=== PATIENT | male | born 1990 | race Caucasian/White ===

== ENCOUNTER 2020-02-05 12:28 | Day surgery (SDC) | payer OTHER ==
[~2020-02-05] VITALS: Ht 177.8 cm; Wt 68.2 kg
[2020-02-05] MEDS ORDERED: LACTATED RINGERS 1,000 ML IV SCH (13:04)
[2020-02-05] MEDS ORDERED: ACET-76 PO (13:07)
[2020-02-05] MEDS ORDERED: IBUP-1623 PO (13:07)
[2020-02-05] MEDS ORDERED: CHLORHEXIDINE 15 ML UDC MM ONE (13:30)
[2020-02-05 13:32] VITALS: BP 137/74
[2020-02-05] MEDS ORDERED: MIDAZOLAM 1 MG/ML, 2ML ONE (14:17)
[2020-02-05] MEDS ORDERED: FENTANYL PF 250 MCG/5ML ONE (14:17)
[2020-02-05] MEDS ORDERED: PROPOFOL 10 MG/ML, 20ML ONE ×2 (14:21)
[2020-02-05] MEDS ORDERED: CEFAZOLIN 1,000 MG ONE ×2 (14:21)
[2020-02-05] MEDS ORDERED: BUPIVACAINE/EPI 0.5% 1:200K ONE (14:55)
[2020-02-05] MEDS ORDERED: NEOSPORIN OINT, 15GM ONE (14:55)
== END 2020-02-05 18:35 | disposition home or self-care (01) ==
LOC: OUT 12:28
PROVIDERS: ATTEND Orthopaedic Surgery
DX: S82.832A Other fracture of upper and lower end of left fibula, initial encounter for closed fracture (principal); G89.18 Other acute postprocedural pain; Z91.030 Bee allergy status; V86.65XA Passenger of 3- or 4- wheeled all-terrain vehicle (ATV) injured in nontraffic accident, initial encounter; Y93.89 Activity, other specified; Y92.89 Other specified places as the place of occurrence of the external cause; Y99.8 Other external cause status
CPT/HCPCS: 27792; 64445; 64447; 73610; 76000; 87635; C1713; J0690; J2250; J2704; J3010; J7120